=== PATIENT | female | born 1990 | race Caucasian/White ===

== ENCOUNTER 2019-10-04 18:55 | Outpatient (CLI) | payer OTHER ==
[2019-10-04] VITALS (7 sets, daily range): BP systolic 122–129; BP diastolic 64–86; PULSE 85–107; TEMP 98
[~2019-10-04] VITALS: Ht 157.5 cm; Wt 67.3 kg
--- NOTE | 2019-10-04 19:10 | NUR ---
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 EFM ON. STATES WAS TOLD TO COME HERE FOR BEING AND POSSIBLY IN LABOR. AROUND NOON TODAY HAD CONSTANT SHARP PAIN IN ABD AND WENT TO HOSPITAL IN [place] TO BE EVALUATED. STATES CERVIX CHANGED FROM FT TO ONE AT THAT HOSPITAL. SVE NOW 2/50/-3 WITH SOFT POSTERIOR CERVIX. STATES IS ASHLEY ABOUT EVERY 10 MINUTES MILD CONTRACTIONS. ADM ASSESSMENT DONE. PRENATALS SENT FROM [facility].
[2019-10-04] MEDS ORDERED: PRILOSEC 20MG20 MG PO (19:18)
[2019-10-04] MEDS ORDERED: KLONOPIN 1MG1 MG PO (19:19)
[2019-10-04] MEDS ORDERED: ULTRAM 50MG TAB50 MG PO (19:20)
[2019-10-04] MEDS ORDERED: WELLBUTRIN XL150 MG PO (19:20)
[2019-10-04] MEDS ORDERED: PRENATAL TABLET PO (19:22)
--- NOTE | 2019-10-04 20:10 | NUR ---
2010 STATES IN LAST TWENTY MINUTES CONTRACTIONS HAVE BECOME MORE INTENSE, EVERY 4 TO 8 MINUTES. SVE /-[address] NOTIFIED AND REPORT GIVEN. WILL CONTINUE TO WATCH PT OUTPT FOR FEW MORE HOURS TO SEE IF ANY PROGRESS IN LABOR.
--- NOTE | 2019-10-04 21:00 | NUR ---
2100 EFM OFF AND UP TO AMB
--- NOTE | 2019-10-04 22:50 | NUR ---
2250 EFM OFF. UP TO AMB. C/O BACK PAIN WITH CONTRACTIONS.
--- NOTE | 2019-10-04 23:10 | NUR ---
2310 [facility] 50MG PO GIVEN. SITTING UP IN ROCKING CHAIR 0 RETURNED TO BED. EFM ON. RESTING ON LEFT SIDE
--- NOTE | 2019-10-05 01:30 | NUR ---
0130 PT SLEEPING SOUNDLY
--- NOTE | 2019-10-05 03:20 | NUR ---
0320 UP TO BR TO VOID. STATES HAS BEEN SLEEPING SOUNDLY AND IS NOT FEELING ANY CONTRACTIONS AT THIS TIME. RETURNED TO BED TO SLEEP.
[2019-10-05 03:30] VITALS: BP 124/59; PULSE 87
--- NOTE | 2019-10-05 05:30 | NUR ---
[address] NOTIFIED OF NO CONTRACTIONS AT THIS TIME AND PT COMFORTABLY SLEEPING. INSTRUCTED TO SEND PT HOME WHEN WAKES UP.
--- NOTE | 2019-10-05 06:25 | NUR ---
Patient resting in bed and report recieved from Sherie SCOTT. Order recieved from Dr. Jamison Per Sherie SCOTT to discharge home without SVE. 0746: Patient given discharge order and instructions. Patient verbalizes understanding. Patient off monitors. 0750: Patient ambulates off unit with significant other.
[2019-10-05 06:46] VITALS: BP 114/75; PULSE 90
== END 2019-10-05 06:50 | disposition home or self-care (01) ==
LOC: LDRO 18:55 → LDR 19:05 → LDRO 10-05 06:50
DX: O26.893 Other specified pregnancy related conditions, third trimester (principal); R10.9 Unspecified abdominal pain; Z3A.35 35 weeks gestation of pregnancy
CPT/HCPCS: OP